=== PATIENT | female | born 1965 | race Hispanic/Latino ===

== ENCOUNTER 2021-02-12 19:48 | Emergency (ER) | payer SELFPAY ==
[2021-02-12] MEDS ORDERED: ASPIRIN 325 MG TAB PO ONE (20:10)
--- NOTE | 2021-02-12 20:16 | Event Note ---
ED Screening Note Date of service: 02/12/21 Time: 20:13 ED Screening Note: 55-year-old female who denies any significant past medical history presents to the ER today with complaints of chest pain, shortness of breath, and pain in both forearms and in her back. She states that the symptoms started 45 minutes prior to arrival. She also reports associated headache. Patient states that she had a stress test about 2 years ago and it was normal. She denies any recent URI symptoms, cough or wheezing. She denies any DVT/PE risk factors. This initial assessment/diagnostic orders/clinical plan/treatment(s) is/are subject to change based on patients health status, clinical progression and re-assessment by fellow clinical providers in the ED. Further treatment and workup at subsequent clinical providers discretion. Patient/guardian urged not to elope from the ED as their condition may be serious if not clinically assessed and managed. Initial orders include: Chest pain order set
--- NOTE | 2021-02-12 20:53 | XRay Report ---
CHEST 2 VIEWS INDICATION / CLINICAL INFORMATION: Chest pain. Sternal chest pain radiating to the right arm. COMPARISON: None available. FINDINGS: SUPPORT DEVICES: None. HEART / MEDIASTINUM: The heart size and pulmonary vasculature are normal. There is mild aortic tortuo sity without aneurysm. LUNGS / PLEURA: No significant pulmonary or pleural abnormality. No pneumothorax. ADDITIONAL FINDINGS: No significant additional findings. IMPRESSION: No acute findings. Signer Name: Jude Eldridge MD Signed: 02/12/2021 8:49 PM Workstation Name: [id number]
[2021-02-12 21:12] LABS: Alanine Aminotransferase 13 units/L (7-56); Albumin 4.3 g/dL (3.9-5); Blood Urea Nitrogen 10 mg/dL (7-17); Calcium 9.4 mg/dL (8.4-10.2); Hemolysis Index 9
[2021-02-12 21:13] LABS: BUN/Creatinine Ratio 14
[2021-02-12 21:22] LABS: Basophils # (Auto) 0.1 K/mm3 (0.0-0.1); Basophils % (Auto) 0.7 % (0.0-1.8); Eosinophils # (Auto) 0.5 K/mm3 (0.0-0.4); Eosinophils % (Auto) 5.1 % (0.0-4.3); Hematocrit 37.5 % (30.3-42.9); Hemoglobin 12.2 gm/dl (10.1-14.3); Lymphocytes # (Auto) 3.8 K/mm3 (1.2-5.4); Lymphocytes % (Auto) 38.1 % (13.4-35.0); Mean Corpuscular HGB Conc 32 % (30-34); Mean Corpuscular Volume 84 fl (79-97); Monocytes # (Auto) 0.6 K/mm3 (0.0-0.8); Platelet Count 398 K/mm3 (140-440); Red Blood Count 4.48 M/mm3 (3.65-5.03); Red Cell Distribution Width 15.1 % (13.2-15.2)
[2021-02-13 03:29] VITALS: BP 187/85
[2021-02-13] MEDS ORDERED: ACETAMINOPHEN 500 MG TAB PO ONE (03:35)
--- NOTE | 2021-02-13 18:09 | Electrocardiograph Report ---
[facility] Test Date: 2021-02-12 Test Time: 20:02:51 Pat Name: CHETNA MOONEY Department: Room: Gender: F Ambulatory Services Representative: NISHA : 1965 Requested By: ED DOC Order Number: [id number] Reading MD: Olivier Cervantes Measurements Intervals Otto Rate: 62 P: 15 MS: 143 QRS: 2 QRSD: 84 T: 14 QT: 439 QTc: 445 Interpretive Statements Sinus rhythm No previous ECG available for comparison Electronically Signed On 02-13-2021 18:09:09 EDT by Olivier Cervantes
== END 2021-02-13 08:21 | disposition left against medical advice (07) ==
LOC: ED 19:48
DX: R07.9 Chest pain, unspecified (principal); Z53.21 Procedure and treatment not carried out due to patient leaving prior to being seen by health care provider
CPT/HCPCS: 36415; 71046; 80053; 84484; 85025; 93005